=== PATIENT | male | born 1970 | race Caucasian/White ===

== ENCOUNTER 2016-08-21 12:54 | Emergency (ER) | payer SELFPAY ==
[~2016-08-21] VITALS: Ht 152.4 cm; Wt 61.2 kg
[2016-08-21 15:53] VITALS: BP 172/92
== END 2016-08-21 15:53 | disposition home or self-care (01) ==
LOC: ED 12:54
DX: S80.02XA Contusion of left knee, initial encounter (principal); S60.222A Contusion of left hand, initial encounter; S90.02XA Contusion of left ankle, initial encounter; I10 Essential (primary) hypertension; V23.9XXA Unspecified motorcycle rider injured in collision with car, pick-up truck or van in traffic accident, initial encounter; Y93.89 Activity, other specified; Y99.8 Other external cause status; Y92.89 Other specified places as the place of occurrence of the external cause
CPT/HCPCS: J1885

== ENCOUNTER 2017-06-15 13:53 | Emergency (ER) | payer SELFPAY ==
[2017-06-15 15:49] VITALS: BP 149/102
== END 2017-06-15 15:49 | disposition home or self-care (01) ==
LOC: ED 13:53
DX: T65.6X1A Toxic effect of paints and dyes, not elsewhere classified, accidental (unintentional), initial encounter (principal); L25.2 Unspecified contact dermatitis due to dyes; I10 Essential (primary) hypertension; Y92.89 Other specified places as the place of occurrence of the external cause
CPT/HCPCS: J2930